=== PATIENT | female | born 1945 | race Caucasian/White ===

== ENCOUNTER 2018-08-05 12:06 | Emergency (ER) | payer OTHER ==
[~2018-08-05] VITALS: Ht 157.5 cm; Wt 93.0 kg
--- NOTE | ~2018-08-05 | EKG ---
[place] [address] [place] [address] ELECTROCARDIOGRAM REPORT Name: FUENTES MEDINA [place] [id number] Admission: 08/05/18 Attend Phys: Discharge: 08/05/18 Date of : 41 Report #: [id number] THIS REPORT FOR: //name// [facility] ED Test Date: 2018-08-05 Test Time: 12:22:33 Pat Name: FUENTES MEDINA Department: Room: Gender: F Rope Walker: GILBERTO : 1945 Requested By: Remington Sam Order Number: [id number] MD: Measurements Intervals [place] Rate: 61 P: 21 LA: 174 QRS: -14 QRSD: 125 T: 36 QT: 461 QTc: 465 Interpretive Statements Sinus rhythm IVCD, consider atypical RBBB Baseline wander in lead(s) V1 No previous ECG available for comparison [email or web address] By: 1222 1222 Epiphany Epiphany, /EPI
[~2018-08-05 12:06] MED LIST: ACETAMINOPHEN650 M5 PO; ASPIRIN EC81 M1 PO; GLUCOSAMINE &1 EAC1 PO; GLUCOSAMINE1000 MG PO; HYDROCHLOROTH12.5 MG PO; KLOR-CON 1010 MEQ PO; NORVASC 5 MG TAB5 MG PO; OMEPRAZOLE20 MG PO; ONE-A-DAY WOMENS PO; PROTONIX40 M2 PO; VITAMIN D1000 UNI1 PO
[2018-08-05] MEDS ORDERED: NORCO 5-325 TA1 EACH PO (13:23)
[2018-08-05] MEDS ORDERED: LIDOCAINE PAIN1 EACH TOP (13:31)
[2018-08-05 14:50] VITALS: BP 132/84
--- NOTE | 2018-08-06 08:04 | EKG ---
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 : 1945 Requested By: Remington Sam Order Number: [id number] MD: Prosper Mcfadden Measurements Intervals [place] Rate: 61 P: 21 IN: 174 QRS: -14 QRSD: 125 T: 36 QT: 461 QTc: 465 Interpretive Statements Sinus rhythm Right ventricular conduction delay Baseline wander in lead(s) V1 Compared to ECG 01/04/2012 18:17:01 No significant change was found Electronically Signed On 08-06-2018 8:04:45 IT SECURITY MANAGER by Prosper Mcfadden [email or web address] <ELECTRONICALLY SIGNED> By: Prosper Mcfadden MD, [facility] 08/06/18 0804 1222 21 Prosper Mcfadden MD, [facility] /EPI
== END 2018-08-05 14:51 | disposition home or self-care (01) ==
LOC: ER 12:06
DX: S20.01XA Contusion of right breast, initial encounter (principal); E11.9 Type 2 diabetes mellitus without complications; I10 Essential (primary) hypertension; K21.9 Gastro-esophageal reflux disease without esophagitis; Z88.2 Allergy status to sulfonamides; Z88.8 Allergy status to other drugs, medicaments and biological substances; W01.0XXA Fall on same level from slipping, tripping and stumbling without subsequent striking against object, initial encounter; Y93.89 Activity, other specified; Y92.89 Other specified places as the place of occurrence of the external cause; Y99.8 Other external cause status